=== PATIENT | female | born 2000 | race Caucasian/White ===

== ENCOUNTER 2021-11-19 13:19 | Emergency (ER) | payer BC, SELFPAY ==
[2021-11-19] VITALS (13 sets, daily range): BP systolic 93–113; BP diastolic 53–86; PULSE 61–89; RESP 12–24; TEMP 36.6–37.1; O2SAT 98–100; BMI 25.8
--- NOTE | 2021-11-19 13:32 | EDS_ITS ---
HPI History of Present Illness Chief Complaint: Lower Extremity Injury Detail of Chief Complaint: Patella dislocation Informant: patient Onset/Context/Timing Onset: Today Current Severity: Mild Maximum Severity: Moderate Narrative Narrative: Patient presents secondary to dislocation of her left patella. Patient was at [employer] class today. She was resting on her hip and jumped up to her knees. Her left patella laterally dislocated. She denies personal history of similar but her brother has had this in the past. Patient was given 50 mcg of fentanyl with EMS. PFSH PFSH Medical History no medical history no medical history Surgical History Hx of foot surgery Surgical History no surgical history Social History Smoking Status: Never smoker ROS ROS ED Constitutional Constitutional ED: Denies chills or fever(s) Eyes Eyes: Denies change in vision ENT ENT ED: Denies sore throat Cardiovascular Cardiovascular: Denies chest pain Respiratory/Chest Respiratory/Chest: Denies cough or dyspnea Gastrointestinal Gastrointestinal: Denies abdominal pain, nausea or vomiting Genitourinary Genitourinary ED: Denies dysuria Musculoskeletal Musculoskeletal: Reports arthralgias; Denies back pain or neck pain Integumentary Denies rash Neurologic Neurologic: Denies headache(s) or paresthesias Allergic/Immunologic Allergic/Immunologic ED: Denies urticaria EXAM Physical Exam Const Vital Signs: 11/19/21 13:21 11/19/21 13:59 11/19/21 14:01 Temperature 98 F 98.8 F Temperature Source Temporal Pulse Rate 81 83 Pulse Rate [1 (Initial Baseline)] 76 Pulse Rate [2] 67 Pulse Rate [3] 64 Pulse Rate [4] 61 Pulse Rate [5] 62 Pulse Rate [6] 75 Respiratory Rate 16 20 H Respiratory Rate [1 (Initial Baseline)] 20 H Respiratory Rate [2] 22 H Respiratory Rate [3] 24 H Respiratory Rate [4] 20 H Respiratory Rate [5] 15 Respiratory Rate [6] 14 Blood Pressure 95/70 107/86 H Blood Pressure [1 (Initial Baseline)] 113/81 H Blood Pressure [3] 100/53 L Blood Pressure [4] 100/53 L Blood Pressure [6] 106/74 Blood Pressure Mean 78 Pulse Ox 100 100 Oxygen Delivery Method Room Air Room Air Oxygen Delivery Method [1 (Initial Baseline)] Nasal Cannula Oxygen Delivery Method [2] Nasal Cannula Oxygen Delivery Method [3] Nasal Cannula Oxygen Delivery Method [4] Nasal Cannula Oxygen Delivery Method [5] Room Air Oxygen Delivery Method [6] Nasal Cannula Oxygen Flow Rate (L/min) Oxygen Flow Rate (L/min) [1 (Initial Baseline)] 2 Oxygen Flow Rate (L/min) [2] 2 Oxygen Flow Rate (L/min) [3] 2 Oxygen Flow Rate (L/min) [4] 2 Oxygen Flow Rate (L/min) [5] 2 Oxygen Flow Rate (L/min) [6] 2 11/19/21 14:15 11/19/21 14:20 11/19/21 14:26 Temperature Temperature Source Pulse Rate 62 63 66 Pulse Rate [1 (Initial Baseline)] Pulse Rate [2] Pulse Rate [3] Pulse Rate [4] Pulse Rate [5] Pulse Rate [6] Respiratory Rate 12 17 12 Respiratory Rate [1 (Initial Baseline)] Respiratory Rate [2] Respiratory Rate [3] Respiratory Rate [4] Respiratory Rate [5] Respiratory Rate [6] Blood Pressure 94/54 L 99/57 L 93/57 L Blood Pressure [1 (Initial Baseline)] Blood Pressure [3] Blood Pressure [4] Blood Pressure [6] Blood Pressure Mean Pulse Ox 100 100 100 Oxygen Delivery Method Nasal Cannula Room Air Room Air Oxygen Delivery Method [1 (Initial Baseline)] Oxygen Delivery Method [2] Oxygen Delivery Method [3] Oxygen Delivery Method [4] Oxygen Delivery Method [5] Oxygen Delivery Method [6] Oxygen Flow Rate (L/min) 2 Oxygen Flow Rate (L/min) [1 (Initial Baseline)] Oxygen Flow Rate (L/min) [2] Oxygen Flow Rate (L/min) [3] Oxygen Flow Rate (L/min) [4] Oxygen Flow Rate (L/min) [5] Oxygen Flow Rate (L/min) [6] 11/19/21 14:31 11/19/21 14:49 11/19/21 15:00 Temperature Temperature Source Pulse Rate 72 89 79 Pulse Rate [1 (Initial Baseline)] Pulse Rate [2] Pulse Rate [3] Pulse Rate [4] Pulse Rate [5] Pulse Rate [6] Respiratory Rate 14 16 16 Respiratory Rate [1 (Initial Baseline)] Respiratory Rate [2] Respiratory Rate [3] Respiratory Rate [4] Respiratory Rate [5] Respiratory Rate [6] Blood Pressure 95/61 112/68 97/64 Blood Pressure [1 (Initial Baseline)] Blood Pressure [3] Blood Pressure [4] Blood Pressure [6] Blood Pressure Mean 72 82 75 Pulse Ox 98 98 99 Oxygen Delivery Method Room Air Room Air Room Air Oxygen Delivery Method [1 (Initial Baseline)] Oxygen Delivery Method [2] Oxygen Delivery Method [3] Oxygen Delivery Method [4] Oxygen Delivery Method [5] Oxygen Delivery Method [6] Oxygen Flow Rate (L/min) Oxygen Flow Rate (L/min) [1 (Initial Baseline)] Oxygen Flow Rate (L/min) [2] Oxygen Flow Rate (L/min) [3] Oxygen Flow Rate (L/min) [4] Oxygen Flow Rate (L/min) [5] Oxygen Flow Rate (L/min) [6] 11/19/21 15:16 11/19/21 15:31 Temperature Temperature Source Pulse Rate 81 80 Pulse Rate [1 (Initial Baseline)] Pulse Rate [2] Pulse Rate [3] Pulse Rate [4] Pulse Rate [5] Pulse Rate [6] Respiratory Rate 16 17 Respiratory Rate [1 (Initial Baseline)] Respiratory Rate [2] Respiratory Rate [3] Respiratory Rate [4] Respiratory Rate [5] Respiratory Rate [6] Blood Pressure 105/80 103/68 Blood Pressure [1 (Initial Baseline)] Blood Pressure [3] Blood Pressure [4] Blood Pressure [6] Blood Pressure Mean 88 79 Pulse Ox 99 99 Oxygen Delivery Method Room Air Room Air Oxygen Delivery Method [1 (Initial Baseline)] Oxygen Delivery Method [2] Oxygen Delivery Method [3] Oxygen Delivery Method [4] Oxygen Delivery Method [5] Oxygen Delivery Method [6] Oxygen Flow Rate (L/min) Oxygen Flow Rate (L/min) [1 (Initial Baseline)] Oxygen Flow Rate (L/min) [2] Oxygen Flow Rate (L/min) [3] Oxygen Flow Rate (L/min) [4] Oxygen Flow Rate (L/min) [5] Oxygen Flow Rate (L/min) [6] Positive well nourished and well developed General Appearance ED: well developed HEENT Reports moist mucous membranes Eyes PERRL Neck full ROM Chest Wall inspection of chest normal and palpation of chest normal Resp normal respiratory effort and clear to auscultation bilaterally Cardio regular rate and regular rhythm GI non-tender Palpation: soft Extremity Extremity Narrative: Left lower extremity: Patella dislocated laterally on exam. Knee held in flexion. Distal pulses palpable with good sensation. Patient able to wiggle toes. Neuro oriented x3 Sensorium / Orientation: alert Skin Rashes: no rashes MDM MDM MDM Narrative Medical decision making narrative: Patient consented for procedural sedation. Last p.o. intake was last evening. No prior problems with sedation or anesthesia. Radiography Diagnostic Testing: Clinical Impression(s) from Imaging Studies Knee X-Ray 11/19/21 14:29 IMPRESSION: Indeterminate linear densities projecting over the patellofemoral articulation on the lateral image, may be artifactual, cannot exclude underlying bone fragments. Electronically Signed: Harriet Harper MD at 15:01 EST , Treatment and Re-Evaluation Narrative: Patient is placed on monitoring tech with O2 in place. Several aliquots of propofol given for sedation. Throughout the procedure she required a total of 200 mg of propofol. Left knee is straightened, however patella did not sit flat across the patellar groove. This did require further manipulation to get good reduction. Knee placed in knee immobilizer. Strong distal pulses noted in patient able to wiggle toes. Left knee x-rays obtained. On repeat evaluation patient is recovered from the sedation without difficulty. X-ray per my interpretation reveals no obvious fracture. Patella in good location. Radiology to rotation also reviewed. Patient will remain in knee immobilizer. Her mother is bringing crutches for her to use as needed at home. I will write her off work tomorrow and she will be referred to orthopedics for follow-up. She wishes to take Tylenol or ibuprofen as needed for pain. Discharge Plan Triage Chief Complaint: Lower Extremity Injury ED Provider: Ada Cooper Dx/Rx/DC Orders Clinical Impression: Patellar dislocation Instructions: ED Patellar Dislocation/Subluxation Primary Care Provider: Care Physician,No Primary Referrals: Will Baez DO [STAFF PHYSICIAN] - 5-7 Days Care Physician,No Primary [Primary Care Provider] - Disposition Disposition: Home, Self Care
--- NOTE | 2021-11-19 13:40 | ED.RN ---
called stack supervisor for immoblizer, none on unit
--- NOTE | 2021-11-19 14:29 | RAD_ITS ---
STUDY: X-RAY - LEFT KNEE REASON FOR EXAM: Female, 21 years old. Patella reduction TECHNIQUE: 2 view(s) of the knee. COMPARISON: None. FINDINGS: Normal visualized distal femur. Normal visualized proximal tibia and fibula. Normal proximal tibiofibular articulation. Normal medial femorotibial compartment. Normal lateral femorotibial compartment. Normal patellofemoral articulation. There are two linear bony appearing densities projecting over the patellofemoral articulation on the lateral image. The soft tissue structures are unremarkable. RAD/Knee 1 or 2 Views IMPRESSION: Indeterminate linear densities projecting over the patellofemoral articulation on the lateral image, may be artifactual, cannot exclude underlying bone fragments. Electronically Signed: Harriet Harper MD at 15:01 EST ,
== END 2021-11-19 16:04 | disposition home or self-care (01) ==
PROVIDERS: Emergency Provider Emergency Medicine; Visit Provider Emergency Medicine
DX: S83.005A Unspecified dislocation of left patella, initial encounter (principal); X50.1XXA Overexertion from prolonged static or awkward postures, initial encounter; Y93.75 Activity, martial arts; Y92.9 Unspecified place or not applicable
CPT/HCPCS: 27560; 73560; 99152; 99285

== ENCOUNTER 2022-03-07 09:30 | Outpatient (RCR) | payer BC, SELFPAY ==
--- NOTE | 2021-12-23 15:24 | HP.PTEVAL ---
Patient's Visit Information MARICEL DAVISON is a 21 year old F referred to Physical Therapy by JOSE LANDIS with a diagnosis of . Date of Evaluation: 12/14/21 Physical Therapist: Francia Deleon PT, Cert MDT - Visit Plan Frequency: 2-3x /Week Duration: 4-6 Weeks Plan: DR. LANDIS'S NONOPERATIVE PROGRAM FOR PATELLOFEMORAL INSTABILITY - IN WORKROOM. GENTLE LLE ROM, STRETCHING AND STRENGTHENING TO HELP MEET SET GOALS. CP AND E-STIM TO HELP WITH PAIN AND SWELLING. GAIT AND PROPRIOCEPTIVE TRAINING. - Subjective Work/Leisure: [employer] FOR [employer]. NOT ALLOWED TO GO TO WORK WITH CRUTCHES. WORKING FROM HOME. Present symptoms: LEFT MEDIAL AND POSTERIOR KNEE PAIN. PATIENT DENIES NUMBNESS OR TINGLING. A LOT OF SWEELING OF WHOLE KNEE. Present since: 3 WEEKS AGO. Pain Scale: 2-7/10. Commenced as a result of: ROLLING FROM [facility]. Symptoms at onset: SEVERE L KNEE PAIN. Worse: MOVEMENT. STANDING AND WALKING. TRYING TO BEND KNEE. Better: REST, ICE AND ELEVATION. Previous history/Previous treatment: UNREMARKABLE. Treatment this episode: INITIALLY RECEIVED LEG SPLINT IN ED WHILE WAITING TO SEE ORTHO. REPORTS THEY PUT HER KNEE CAP BACK IN PLACE IN THE ED. JENNIFER ORTHO DOC SENT PATIENT TO [facility] KNEE SPECIALIST AND HE DID MRI AND GAVE HER A KNEE BRACE WITHOUT KNEE FLEXION RESTRICTION. PATIENT IS TO WEAR KNEE BRACE AT ALL TIMES EXCEPT SLEEPING. HAS NOT BEEN GIVEN ANY EXERCISES YET. Gait: PATIENT REPORTS SHE CAN WALK AROUND A LITTLE BIT AT HOME WITHOUT HER CRUTCHES SOMETIMES BUT SOMETIMES SHE IS VERY DEPENDENT ON HER CRUTCHES DUE TO KNEE PAIN. Imaging: MRI - PATIENT DESCRIBES MRI SHOWING PATELLAR AVULSION FX AND TORN LIGAMENT IN KNEE. 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 H/O LEFT ANKLE SPRAIN. PLOF (Prior Level of Function): UNLIMITED. OTHER: PATIENT REPORTS SHE IS ALLOWED TO DRIVE BUT SHE CAN'T BECAUSE SHE CAN'T GET INTO THE DRIVERS SEAT BECAUSE HER LEG WON'T BEND. - Pain L KNEE Pain Intensity (Out of 10): 0 - Objective THIS PATIENT AMBULATES INDEP'LY INTO PT TODAY X APPROX 150 FEET ON [employer] CRUT[employer] PWB ON LLE AND WEARING A LEFT KNEE BRACE WITH PATELLA CUT OUT AND WITHOUT ROM LIMITATION. SHE IS ABLE TO TRANSFER INDEP'LY FROM SIT TO STAND AND FROM SIT TO SUPINE BUT UE DEPENDENT TO LIFT LEG ONTO TABLE. ROM: SHE HAS FULL ROM OF HER L ANKLE AND >90 DEG L HIP FLEXION ROM BUT ONLY 33 DEG OF L KNEE FLEXION ROM. FULL L KNEE EXTENSION. RIGHT LE ROM WFL. STRENGTH: LEFT HIP FLEX 2/5, KNEE EXT (QUAD SET) 2-/5, KNEE FLEX 2-/5, ANKLE 5/5. HER LEFT KNEE IS VERY SWOLLEN. CIRCUMFERENCE: PATELLA 40.5 CM, 6 PROX 49.5, 6 CM DISTAL 34.75 CM. Sensory deficit: L LE LIGHT TOUCH SENSATION IS GROSSLY INTACT. Core strength: GOOD. - Balance/Special Test Scores Lower Extremity Functional Score: 23 - Goals Goal 1:: DECREASE R KNEE SWELLING Goal Time Frame: 4-6 Weeks Goal 2:: INCREASE PAINFREE L LE ROM TO EASE ADL'S. Goal Time Frame: 4-6 Weeks Goal 3:: NORMALIZE GAIT PATTERN WITHOUT AD TO ALLOW FOR SAFE RETURN TO WORK. Goal Time Frame: 4-6 Weeks Goal 4:: INCREASE FUNCTIONAL STRENGTH OF L LE TO EASE ADL'S. Goal Time Frame: 4-6 Weeks Goal 5:: PATIENT WILL BE INDEP WITH A HEP FOR CONTINUED IMRPOVEMENT ONCE FORMAL PHYSICAL THERAPY CONCLUDES. Goal Time Frame: 4-6 Weeks - Anticipated Interventions Patient/Client Instruction: Educate patient on: Condition, Plan of Care, Risk Factors For the Purpose of:: To improve self management Therapeutic Exercise to Include: Strength training, Balance training, Flexibilty training, Gait and locomotor training, Neuromotor development, In an aquatic setting, Passive ROM, Active ROM For the Purpose of:: To decrease pain, To decrease swelling/inflammation, To increase ROM, To improve muscle performance and motor function, To increase tolerance to activity/condition/position, To improve ability of physical actions for home/community/work/leisure, To improve gait and locomotor functions TENS: Yes IF ES: Yes Cryotherapy (ice pack, ice massage): Yes For the Purpose of:: To decrease pain, To decrease swelling/inflammation, To improve nutrient delivery to tissue Thank you for the opportunity to evaluate your patient. For Medicare and Medicare HMO plans, please review the plan of care and approve it. It will need to be FAXED BACK to us at [phone] for Medicare purposes. For Medicare only, by signing this I certify the plan of care. Please let me know if there are questions or concerns regarding this plan of care. Physician Signature: Date:
--- NOTE | 2022-01-09 14:48 | HP.PTREVAL ---
JOSE LANDIS, It has been my pleasure to treat MARICEL DAVISON over the last 12 visits for . Please see the progress note below for an update on the physical therapy plan of care! Subjective: PATIENT REPORTS SHE FEELS LIKE THERAPY HAS BEEN REALLY HELPFUL SO FAR. SHE REPORTS SHE IS DOING THE HOME EX'S TOLERATED. Objective/Function: PATIENT WAS SEEN TODAY FOR RE-ASSESSMENT OF PROGRESS TOWARD THE SET PT GOALS AND THE NEED FOR FURTHER PHYSICAL THERAPY VS READINESS FOR DISCHARGE. SHE IS MAKING SLOW PROGRESS TOWARD ALL PT GOALS AND APPEARS TO BE A GOOD CANDIDATE TO CONTINUE PT BASED ON PROGRESS MADE AND ROOM FOR FURTHER IMPROVEMENT IF SURGEON AGREES AFTER RE-CHECK SUNDAY. UPON EXAM TODAY: THIS PATIENT AMBULATES INDEP'LY INTO PT TODAY X APPROX 150 FEET ON ONE FOREARM CRUTCH WBAT ON LLE AND WEARING A LEFT KNEE BRACE WITH PATELLA CUT OUT AND WITHOUT ROM LIMITATION ON THE BRACE. SHE IS ABLE TO TRANSFER INDEP'LY FROM SIT TO STAND AND FROM SIT TO SUPINE BUT UE DEPENDENT TO LIFT LEG ONTO TABLE. NOW ABLE TO PARTIALLY ASSIST WITH HIP FLEXORS DURING TRANSFER. ROM: FULL PASSIVE L KNEE EXTENSION IN SUPINE TO 85 DEG (33 DEG AT EVAL) ACTIVE L KNEE FLEXION IN SUPINE WITH A HEEL SLIDE. SHE IS NOW GETTING A PRETTY GOOD ISOMETRIC QUAD CONTRACTION BUT IS UNABLE TO DO A LAQ OR SAQ OR SLR INDEP'LY WITH THE LLE. IN STANDING WITH KNEE FLEXION SHE CAN FLEX HER HIP TO APPROX 80 DEG NOW. STRENGTH: LEFT HIP FLEX 2+/5, KNEE EXT (QUAD SET) 2+/5, KNEE FLEX 2/5, ANKLE 5/5. L KNEE SWELLING - MODERATE. Sensory deficit: L LE LIGHT TOUCH SENSATION IS GROSSLY INTACT. Core strength: GOOD. Plan Plan: DR. LANDIS'S NONOPERATIVE PROGRAM FOR PATELLOFEMORAL INSTABILITY - IN WORKROOM. GENTLE LLE ROM, STRETCHING AND STRENGTHENING TO HELP MEET SET GOALS. CP AND E-STIM TO HELP WITH PAIN AND SWELLING. GAIT AND PROPRIOCEPTIVE TRAINING. Balance/Gait/Functional tests - Balance/Special Test Scores Lower Extremity Functional Score: 31 Goals Goal 1:: DECREASE R KNEE SWELLING Goal Time Frame: 4-6 Weeks Goal Progress: Progressing Goal 2:: INCREASE PAINFREE L LE ROM TO EASE ADL'S. Goal Time Frame: 4-6 Weeks Goal Progress: Progressing Goal 3:: NORMALIZE GAIT PATTERN WITHOUT AD TO ALLOW FOR SAFE RETURN TO WORK. Goal Time Frame: 4-6 Weeks Goal Progress: Progressing Goal 4:: INCREASE FUNCTIONAL STRENGTH OF L LE TO EASE ADL'S. Goal Time Frame: 4-6 Weeks Goal Progress: Progressing Goal 5:: PATIENT WILL BE INDEP WITH A HEP FOR CONTINUED IMRPOVEMENT ONCE FORMAL PHYSICAL THERAPY CONCLUDES. Goal Time Frame: 4-6 Weeks Goal Progress: Progressing Anticipated Interventions Patient/Client Instruction: Educate patient on: Condition, Plan of Care, Risk Factors For the Purpose of:: To improve self management Therapeutic Exercise to Include: Strength training, Balance training, Flexibilty training, Gait and locomotor training, Neuromotor development, In an aquatic setting, Passive ROM, Active ROM For the Purpose of:: To decrease pain, To decrease swelling/inflammation, To increase ROM, To improve muscle performance and motor function, To increase tolerance to activity/condition/position, To improve ability of physical actions for home/community/work/leisure, To improve gait and locomotor functions TENS: Yes IF ES: Yes Cryotherapy (ice pack, ice massage): Yes For the Purpose of:: To decrease pain, To decrease swelling/inflammation, To improve nutrient delivery to tissue Please do not hesitate to contact me at [phone] by phone or if you have questions or concerns regarding this new plan of care! Sincerely, Francia Deleon PT, Cert MDT
--- NOTE | 2022-06-20 13:06 | HP.PT.NRP ---
MARICEL DAVISON was seen in my office for initial evaluation on 12/14/21. The following Plan of Care was established for this patient: Initial Frequency: 2-3x /Week Initial Duration: 4-6 Weeks Patient/Client Instruction: Educate patient on: Condition, Plan of Care, Risk Factors For the Purpose of:: To improve self management Therapeutic Exercise to Include: Strength training, Balance training, Flexibilty training, Gait and locomotor training, Neuromotor development, In an aquatic setting, Passive ROM, Active ROM For the Purpose of:: To decrease pain, To decrease swelling/inflammation, To increase ROM, To improve muscle performance and motor function, To increase tolerance to activity/condition/position, To improve ability of physical actions for home/community/work/leisure, To improve gait and locomotor functions TENS: Yes IF ES: Yes Cryotherapy (ice pack, ice massage): Yes For the Purpose of:: To decrease pain, To decrease swelling/inflammation, To improve nutrient delivery to tissue This patient was last seen in our office 03/07/22. Pertinent comments regarding their Physical therapy will appear below: This patient has not returned to Physical Therapy and is appropriate to return to MD for further follow-up as needed. At this point I will be discontinuing this patient from physical therapy. I would be happy to see this patient again in the future if found appropriate by the physician. Thank you! Francia Deleon, PT, Cert MDT Balance/Gait/Functional tests - Balance/Special Test Scores Lower Extremity Functional Score: 33
== END 2022-03-07 19:00 | disposition home or self-care (01) ==
LOC: PT 09:30
DX: S83.015D Lateral dislocation of left patella, subsequent encounter (principal)
CPT/HCPCS: 97014; 97110; 97161; 97162; 97164; 97530; G0283